=== PATIENT | male | born 1950 | race Caucasian/White ===

== ENCOUNTER 2020-09-19 12:54 | Inpatient (IN) ==
--- NOTE | 2020-09-19 13:46 | Emergency Department Note ---
SOB HPI General Chief Complaint: Shortness of Breath/Dyspnea Stated Complaint: SOB Time Seen by Provider: 09/19/20 13:20 Source: patient Mode of arrival: ambulatory Limitations: no limitations History of Present Illness HPI Narrative: Narrative: Patient is a 70-year-old gentleman who arrives emergency department by private vehicle complaining of shortness of breath. He is accompanied by his . Patient says he has been feeling short of breath for the past 2 weeks. This is gradual in onset and has been progressively worsening. He is also had severe edema in both lower extremities. He has had a cough productive of white sputum. He denies any associated fever chills or chest pain. He presented to an urgent care who was concerned about his symptoms they referred him to the emergency department for further evaluation. He has never had anything like this before. Related Data Home Medications Medication Instructions Recorded Confirmed triamterene-hydrochlorothiazid 1 tab PO QDAY 09/19/20 09/19/20 Allergies Allergy/AdvReac Type Severity Reaction Status Date / Time No Known Drug Allergies Allergy Unverified 09/19/20 12:59 Review of Systems ROS ROS Narrative: Narrative: All systems ED: reviewed and negative except as stated. Constitutional: Denies fever and chills Cardiovascular: Denies chest pain Gastrointestinal: Denies abdominal pain, nausea and diarrhea PFSH Narrative Patient History Narrative: Narrative: Medical/Surgical/Family History All Active Problems (Updated 09/19/20 @ 15:47 by Pantera Monroe DO) Congestive heart failure (Acute) History of hypertension (Acute) History of COPD (Acute) Social History Smoking Status: Current every day smoker Alcohol Intake Frequency: holiday/special occasion only Substance Use: does not use Exam Narrative Narrative: Gen -patient is awake and alert and in no acute distress. HEENT -head is atraumatic. There is no conjunctival pallor or scleral icterus. CV -S1-S2 regular rate and rhythm. Peripheral pulses are palpable. There is severe pitting edema bilateral lower extremities Resp -breathing slightly labored while on a nasal cannula. The patient is able to speak in short sentences but has significantly increased work of breathing after prolonged conversation. Lungs have moderate rales bilaterally. There is no cyanosis. GI - Abdomen is soft and nontender to palpation. There is no guarding or rebound tenderness. Derm -skin is warm and dry. MSK -present extremities are atraumatic. Psych -patient has appropriate affect. Neuro -patient answers questions appropriately with fluent speech. Patient moves all present extremities equally. General Limitations: no limitations Course Vital Signs Vital signs: Vital Signs Temperature 97.4 F 09/19/20 12:55 Pulse Rate 101 H 09/19/20 12:55 Respiratory Rate 20 09/19/20 12:55 Blood Pressure 141/75 09/19/20 12:55 Pulse Oximetry (%) 83 L 09/19/20 12:55 Temperature 97.4 F 09/19/20 12:55 Pulse Rate 77 09/19/20 15:31 Respiratory Rate 24 H 09/19/20 15:31 Blood Pressure 111/87 09/19/20 15:31 Pulse Oximetry (%) 95 09/19/20 15:31 MDM MDM Narrative Medical decision making narrative: I personally performed interpreted a limited bedside transthoracic echocardiogram and pulmonary ultrasound. Obtained apical four-chamber parasternal long and short axis views which were somewhat limited by patient body habitus and positioning. There is no pericardial effusion. There is slightly decreased left ventricular ejection fraction. There is no evidence of right ventricular dysfunction. Lung ibarra are B-lines predominant bilaterally Patient presents with new onset shortness of breath. His chest x-ray and pulmonary ultrasound are suggestive of decompensated heart failure. Labs remarkable for an elevated BNP and minimally elevated troponin. Patient's work of breathing greatly improved with supplemental oxygen. I discussed the test results with him and his and is agreeable with the plan for admission and diuresis. I discussed the patient's history examination and diagnostic findings with Dr. Gaspar, who agrees with the plan of care and accepts admission. Critical care time I provided at least 35 minutes of critical care time. This was separate from any separately billable procedures. The patient was given IV diuretics and transdermal nitrates to treat his decompensated heart failure and given suppleme ntal oxygen to treat the resulting hypoxemic respiratory failure.. The patient was closely monitored for response to treatment and stability of vital signs throughout their emergency department stay. Lab Data Lab results reviewed: Yes I reviewed the patient's lab results. Result diagrams: 09/19/20 13:20 09/19/20 13:20 Labs: Lab Results 09/19/20 09/19/20 09/19/20 Range/Units 13:20 13:20 13:20 WBC 10.8 (4.5-11.0) K/mcL RBC 6.12 H (4.50-5.90) M/mcL Hgb 17.5 H (13.5-16.5) g/dL Hct 56.9 H (41.0-55.0) % MCV 93.0 (80.0-100.0) fL MCH 28.6 (26.0-34.0) pg MCHC 30.8 L (31.0-36.0) g/dL RDW 14.7 H (11.5-14.5) % Plt Count 200 (140-440) K/mcL MPV 11.0 H (7.4-10.4) fL Neut % (Auto) 62.8 (38.0-78.0) % Lymph % (Auto) 18.9 (15.0-49.0) % [place] % (Auto) 17.7 H (1.0-12.0) % Eos % (Auto) 0.3 (0.0-7.0) % Baso % (Auto) 0.3 (0.0-2.0) % Lymph # (Auto) 2.03 (1.50-4.80) K/mcL [place] # (Auto) 1.90 H (0.10-0.90) K/mcL Eos # (Auto) 0.03 (0.00-0.70) K/mcL Baso # (Auto) 0.03 (0.00-0.20) K/mcL Absolute Neutrophils 6.76 (1.80-8.00) K/mcL Sodium 137 (133-145) mmol/L Potassium 4.3 (3.3-5.1) mmol/L Chloride 100 (96-108) mmol/L Carbon Dioxide 27 (22-30) mmol/L Anion Gap 10.0 (8.0-16.0) BUN 19 (8-23) mg/dL Creatinine 1.2 (0.7-1.2) mg/dL GFR Calculation 61 Glucose 90 (70-105) mg/dL Calcium 8.9 (8.6-10.4) mg/dL Total Bilirubin 1.1 H (0.1-1.0) mg/dL AST 25 (<40) U/L ALT 20 (<40) U/L Alkaline Phosphatase 80 (39-117) U/L Troponin T 0.03 H (<0.03) ng/mL NT-Pro-B Natriuret Pep 3475.0 H (<125.0) pg/mL Total Protein 6.7 (5.9-8.4) gm/dL Albumin 3.5 (3.2-5.2) gm/dL Globulin 3.2 (2.2-3.7) gm/dL Albumin/Globulin Ratio 1.1 (1.0-2.3) ED POC Tests ED POC Tests: FELICITAS - SARS Antigen Negative EKG Data EKG #1: EKG attestation: Yes I reviewed and interpreted this EKG. EKG results narrative: EKG performed at 1:32 PM: Sinus rhythm, rate 101. Normal P wave morphology atypical right bundle branch block. T waves are inverted throughout the precordial leads. No ST segment deviation. Normal QTC duration. No old EKG immediately available for comparison. EKG was interpreted by me. Discharge Plan Patient/Caregiver Discharge Instructions Pt seen by [facility] PRESERVES/PA only: No Clinical Impression: Congestive heart failure Qualifiers: Heart failure type: unspecified Heart failure chronicity: acute Qualified Code(s): I50.9 - Heart failure, unspecified Patient Disposition: Xfer As Inpt ([facility]) Condition: Fair Follow up with: No,PCP [Primary Care Provider] - Prescriptions: No Action triamterene-hydrochlorothiazid 37.5-25 mg Tablet 1 tab PO QDAY RF: 0
--- NOTE | 2020-09-19 14:03 | EKG ---
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 Measurements Intervals [place] Rate: 101 P: 81 [place]: 131 QRS: 114 QRSD: 157 T: -60 QT: 368 QTc: 477 Interpretive Statements Sinus tachycardia Multiple premature complexes, supraven Left atrial enlargement RBBB and LPFB Anteroseptal infarct, age indeterminate NO PRIOR TRACING FOR COMPARISON Electronically Signed On 09-19-2020 14:03:18 PDT by Nba Grajeda M.D. /[facility] [place]/M0/[id number].pdf
--- NOTE | 2020-09-19 14:13 | XRay Report ---
INDICATION: dyspnea TECHNIQUE: PA and lateral upright chest x-ray COMPARISON: None FINDINGS: Lungs: No pulmonary parenchymal consolidation. No pulmonary parenchymal mass Heart, vascular: There is mild cardiomegaly. Pulmonary vascularity is prominent consistent with pulmonary congestion. There is peribronchial thickening consistent with interstitial edema. Mediastinum, cesar: No mediastinal widening. No hilar mass Pleura:Small right pleural effusion, probably secondary to congestive heart failure Thoracic spine, ribs: No thoracic compression fracture. Ribs are negative. No fracture. No lytic lesion IMPRESSION: 1. Cardiomegaly and findings consistent with moderate congestive heart failure 2. Small right effusion Interpreted and Authenticated by: [place] Clayton 09/19/20
[2020-09-19 14:32] LABS: ALT/SGPT 20 U/L (<40); AST/SGOT 25 U/L (<40); Albumin 3.5 gm/dL (3.2-5.2); Albumin/Globulin Ratio 1.1 (1.0-2.3); Alkaline Phosphatase 80 U/L (39-117); Bilirubin,Total 1.1 mg/dL (0.1-1.0); Blood Urea Nitrogen 19 mg/dL (8-23); Calcium 8.9 mg/dL (8.6-10.4); Carbon Dioxide 27 mmol/L (22-30); Chloride 100 mmol/L (96-108); Globulin 3.2 gm/dL (2.2-3.7); Glomerular Filtration Rate 61; Glucose 90 mg/dL (70-105)
[2020-09-19 15:34] LABS: Basophils # (Auto) 0.03 K/mcL (0.00-0.20); Basophils % (Auto) 0.3 % (0.0-2.0); Eosinophils # (Auto) 0.03 K/mcL (0.00-0.70); Eosinophils % (Auto) 0.3 % (0.0-7.0); Hematocrit 56.9 % (41.0-55.0); Hemoglobin 17.5 g/dL (13.5-16.5); Lymphocytes # (Auto) 2.03 K/mcL (1.50-4.80); Lymphocytes % (Auto) 18.9 % (15.0-49.0); Mean Corpuscular HGB Conc 30.8 g/dL (31.0-36.0); Monocytes % (Auto) 17.7 % (1.0-12.0); Neutrophils % (Auto) 62.8 % (38.0-78.0); Platelet Count 200 K/mcL (140-440); RBC 6.12 M/mcL (4.50-5.90); Red Cell Distribution Width 14.7 % (11.5-14.5); WBC 10.8 K/mcL (4.5-11.0)
[2020-09-19] MEDS ORDERED: NITROGLYCERIN 1 GM OINT.TOP TD ONE (15:43)
[2020-09-19] MEDS ORDERED: FUROSEMIDE 40 MG/4 ML VIAL IV ONE (15:43)
--- NOTE | 2020-09-19 16:20 | Internal Med History&Physical ---
HPI History of Present Illness Patient information: Note initiated : 09/19/20 at 4:13 pm Service Date, if different from initiated Date: [] Patient: Grayson Jones 70 y/o M admitted on for Shortness of breath. Chief Complaint: [shortness of breath] History of present illness: Mr. Jones is a 70 year old M history of COPD, presenting with 3 weeks history of bilateral leg swelling as well as shortness of breath. Patient denies any prior similar episode. Patient was in his usual state of health until about 3 weeks ago when he had gradual onset, gradually worsening bilateral leg edema worse as well as progressively worsening shortness of breath. He also is complaining of 11 pounds unintentional weight gain over the same period of time. He is also complaining of orthopnea to the point that he has to sit up in a chair to sleep at night. He is also complaining of dyspnea on exertions of about 10 feet. He is also complained of general body weakness. Patient is denies any change in his appetite. Patient denies any chest pain or chest tightness or palpitations. Patient denies any cough. Patient is committing of wheezing but it is to the baseline given the history of COPD. Because of his symptoms, patient's presented to urgent care center where he was told to come to our ED for further evaluation and treatment. Vital signs significant for oxygen saturations in the mid 80s on room air with the rest of the vital signs within normal limits. Labs significant for BNP 3475. Serum troponin-i 0.03. Chest x-ray showing cardiomegaly and pulmonary edema. EKG does not have any definite signs of acute ischemia. Constitutional Constitutional: Present weakness; Absent chills, excessive sweating, fatigue and fever(s) EENT Eyes: Absent blurry vision, change in vision, loss of vision and other visual disturbances Ears: Absent decreased hearing and tinnitus Nose, mouth and throat: Absent abnormal hearing, dry mouth, headache(s), nasal congestion and sore throat Cardiovascular Cardiovascular: Present as per HPI, edema, leg edema and orthopnea; Absent chest pain, chest pain at rest, irregular heart rhythm and palpatations Respiratory Respiratory: Present dyspnea, dyspnea on exertion and wheezing; Absent cough Gastrointestinal Gastrointestinal: Absent abdominal pain, constipation, diarrhea, nausea and vomiting Musculoskeletal Musculoskeletal: Absent back pain, deformity, limited range of motion, muscle cramps, muscle weakness and numbness Integumentary Integumentary: Absent lesions, rash and wounds Neurological Neurological: Absent focal weakness, headache(s) and numbness Psychiatric Psychiatric: Absent anxiety, depression and hallucinations PFSH PFSH All Active Problems (Updated 09/19/20 @ 16:20 by Arvin Gaspar MD) Current tobacco use (Acute) CHF exacerbation (Acute) Congestive heart failure (Acute) History of hypertension (Acute) History of COPD (Acute) Social History (Updated 09/19/20 @ 16:17 by Arvin Gaspar MD) marital status: smoking status: Current every day smoker alcohol intake frequency: does not drink substance use type: does not use MEDS/ALLERGIES Home Medications and Allergies Home Medications Medication Instructions Recorded Confirmed Type triamterene-hydrochlorothiazid 1 tab PO QDAY 09/19/20 09/19/20 History Allergies Allergy/AdvReac Type Severity Reaction Status Date / Time No Known Drug Allergies Allergy Unverified 09/19/20 12:59 EXAM Constitutional Vitals: Temp Pulse Resp BP Pulse Ox 36.3 C 80 20 121/77 95 09/19/20 12:55 09/19/20 15:46 09/19/20 15:46 09/19/20 15:46 09/19/20 15:46 General appearance: cooperative and no acute distress Head Head exam: Present atraumatic and normocephalic Eye Eye exam: Present EOMI and PERRL ENT ENT exam: Present mucous membranes moist, normal exam and normal external ear exam Additional comments: Nasal cannula in place Neck Neck exam: Present normal inspection; Absent lymphadenopathy, tenderness and thyromegaly Respiratory Respiratory exam: Present wheezes; Absent accessory muscle use and respiratory distress Additional comments: Prolonged expiratory phase Expiratory > inspiratory wheezing in all lung ibarra. Cardiovascular Cardiovascular exam: Present normal rate and rhythm; Absent JVD GI/Abdominal GI/Abdominal exam: Present normal bowel sounds and soft; Absent organomegaly and tenderness Rectal Rectal exam: Present deferred Extremities Exam Extremities exam: Present full ROM, normal capillary refill and normal inspection; Absent tenderness Neurological Exam Neurological exam: Present alert, CN II-XII intact and oriented X3; Absent motor sensory deficit Psychiatric Psychiatric exam: Present normal affect and normal mood; Absent anxious and depressed Skin Skin exam: Present dry and intact DATA Data Completed and Pending Labs: Labs from last 24 hours 09/19/20 09/19/20 09/19/20 13:20 13:20 13:20 WBC 10.8 RBC 6.12 H Hgb 17.5 H Hct 56.9 H MCV 93.0 MCH 28.6 MCHC 30.8 L RDW 14.7 H Plt Count 200 MPV 11.0 H Neut % (Auto) 62.8 Lymph % (Auto) 18.9 [place] % (Auto) 17.7 H Eos % (Auto) 0.3 Baso % (Auto) 0.3 Lymph # (Auto) 2.03 [place] # (Auto) 1.90 H Eos # (Auto) 0.03 Baso # (Auto) 0.03 Absolute Neutrophils 6.76 Sodium 137 Potassium 4.3 Chloride 100 Carbon Dioxide 27 Anion Gap 10.0 BUN 19 Creatinine 1.2 GFR Calculation 61 Glucose 90 Calcium 8.9 Total Bilirubin 1.1 H AST 25 ALT 20 Alkaline Phosphatase 80 Troponin T 0.03 H NT-Pro-B Natriuret Pep 3475.0 H Total Protein 6.7 Albumin 3.5 Globulin 3.2 Albumin/Globulin Ratio 1.1 Additional Comments Additional comments: ECG interpretations: Ventricular rate: 101 MT interval: 131 QRS interval: 157 QTc: 477 Right axis deviation RBBB and LPFB No ST segments elevation or depression No T waves inversion A/P Assessment and plan (1) History of COPD: Status: Acute (2) History of hypertension: Status: Acute (3) CHF exacerbation: Status: Acute (4) Current tobacco use: Status: Acute Narrative A/P Narrative: 1. CHF exacerbation: Admit to inpatient PCU with telemetry Strict intake and output daily weigh 2L/day fluid restriction 2D echocardiogram Lasix 40mg IV BID Lisinopril 20mg PO daily No beta elizabet during exacerbation phase Spironolactone depending on LVEF from echocardiogram Supplemental oxygen via nasal cannula to achieve spo2 >=90% 2. h/o COPD, does not appear to be in exacerbation: Continue bronchodilators and inhaled steriod Supplemental oxygen via nasal cannula to achieve spo2 >=90% 3. h/o essential HTN: Currently normotensive Lasix 40mg IV BID Lisinopril 20mg PO daily 4. Current tobacco use: Advise patient on quitting cigarette smoking and provide nicotine replacement therapy as needed for smoking craving GI ppx: not currently indicated DVT ppx: Lovenox Code status: Full Prognosis: guarded Disposition: inpatient PCU Time Spent With Patient Time: Total time spent is greater than 50% in coordination of care (as documented) at patient's floor/unit and/or counseling patient: Total time spent with greater than 50% in coordination of care (as documented) at patient's floor/unit and/or counseling patient:: 25 - 35 minutes
[2020-09-19] MEDS ORDERED: LACTULOSE 20 GM/30 ML ORAL.SOL PO PRN (16:26)
[2020-09-19] MEDS ORDERED: ACETAMINOPHEN 325 MG TABLET PO PRN (16:26)
[2020-09-19] MEDS ORDERED: NITROGLYCERIN 0.4 MG TAB.SUBL SL PRN (16:26)
[2020-09-19] MEDS ORDERED: ONDANSETRON 4 MG/2 ML VIAL IV PRN (16:26)
[2020-09-19] MEDS ORDERED: SENNOSIDES 1 TABLET PO PRN (16:26)
[2020-09-19] MEDS: BUDESONIDE 0.5 MG/2 ML AMPUL.NEB NEB SCH (20:04)
[2020-09-19] MEDS: IPRATROPIUM/ALBUTEROL 3 ML AMPUL.NEB NEB PRN (20:05)
[2020-09-19] MEDS: DOCUSATE SODIUM 100 MG CAPSULE PO SCH (21:02)
[2020-09-19] MEDS: 0.9 % SODIUM CHLORIDE 10 ML SYRINGE IV SCH (21:31)
[2020-09-20 06:40] LABS: Basophils # (Auto) 0.02 K/mcL (0.00-0.20); Basophils % (Auto) 0.2 % (0.0-2.0); Eosinophils # (Auto) 0.08 K/mcL (0.00-0.70); Eosinophils % (Auto) 0.9 % (0.0-7.0); Hematocrit 57.6 % (41.0-55.0); Hemoglobin 17.2 g/dL (13.5-16.5); Lymphocytes # (Auto) 1.77 K/mcL (1.50-4.80); Lymphocytes % (Auto) 19.5 % (15.0-49.0); Mean Cell Volume 94.1 fL (80.0-100.0); Mean Corpuscular HGB Conc 29.9 g/dL (31.0-36.0); Mean Platelet Volume 11.1 fL (7.4-10.4); Monocytes # (Auto) 1.91 K/mcL (0.10-0.90); Neutrophils % (Auto) 58.4 % (38.0-78.0); Platelet Count 187 K/mcL (140-440); RBC 6.12 M/mcL (4.50-5.90); Red Cell Distribution Width 15.2 % (11.5-14.5); WBC 9.1 K/mcL (4.5-11.0)
[2020-09-20] MEDS: FUROSEMIDE 40 MG/4 ML VIAL IV SCH ×2 (08:01→15:19)
[2020-09-20] MEDS: 0.9 % SODIUM CHLORIDE 10 ML SYRINGE IV SCH ×3 (08:07→21:57)
[2020-09-20] MEDS: DOCUSATE SODIUM 100 MG CAPSULE PO SCH ×2 (08:08→19:54)
[2020-09-20] MEDS ORDERED: LISINOPRIL 20 MG TABLET PO SCH (09:00)
[2020-09-20] MEDS ORDERED: ENOXAPARIN 30 MG/0.3 ML SYRINGE SQ SCH (09:00)
[2020-09-20] MEDS: BUDESONIDE 0.5 MG/2 ML AMPUL.NEB NEB SCH ×2 (09:18→19:55)
[2020-09-20 09:23] LABS: Blood Urea Nitrogen 17 mg/dL (8-23); Calcium 9.2 mg/dL (8.6-10.4); Carbon Dioxide 28 mmol/L (22-30); Chloride 99 mmol/L (96-108); Glomerular Filtration Rate 68; Glucose 89 mg/dL (70-105)
[2020-09-20] MEDS ORDERED: MAGNESIUM SULFATE 2 GM/50 ML BAG IV PRN ×2 (13:50→23:14)
[2020-09-20] MEDS ORDERED: POTASSIUM CHLORIDE 20 MEQ/15 ML ML PO PRN ×2 (13:50→23:14)
[2020-09-20] MEDS ORDERED: NEUTRA PHOS 1 PACKET PO PRN ×2 (13:50→23:14)
[2020-09-20] MEDS ORDERED: ACETAMINOPHEN 650 MG/65 ML BAG IV PRN ×2 (13:50→23:14)
--- NOTE | 2020-09-20 14:10 | Internal Med Progress Note ---
SUBJECTIVE Subjective Patient information: Note initiated : 09/20/20 at 2:08 pm Service Date, if different from initiated Date: [] Patient: Grayson Jones 70 y/o M admitted on 09/19/20 for Shortness of breath. Chief Complaint: [SOB] History of present illness: Mr. Jones is a 70 year old M history of COPD, presenting with 3 weeks history of bilateral leg swelling as well as shortness of breath. Patient denies any prior similar episode. Patient was in his usual state of health until about 3 weeks ago when he had gradual onset, gradually worsening bilateral leg edema worse as well as progressively worsening shortness of breath. He also is complaining of 11 pounds unintentional weight gain over the same period of time. He is also complaining of orthopnea to the point that he has to sit up in a chair to sleep at night. He is also complaining of dyspnea on exertions of about 10 feet. He is also complained of general body weakness. Patient is denies any change in his appetite. Patient denies any chest pain or chest tightness or palpitations. Patient denies any cough. Patient is committing of wheezing but it is to the baseline given the history of COPD. Because of his symptoms, patient's presented to urgent care center where he was told to come to our ED for further evaluation and treatment. Vital signs significant for oxygen saturations in the mid 80s on room air with the rest of the vital signs within normal limits. Labs significant for BNP 3475. Serum troponin-i 0.03. Chest x-ray showing cardiomegaly and pulmonary edema. EKG does not have any definite signs of acute ischemia. 6/4: On 3L supplemental oxygen this afternoon. Improving shortness of breath. Denies wheezing. Denies cough. Denies chest pain. Denies fever or chills. Constitutional Vitals: Vital Signs Temp Pulse Resp BP Pulse Ox 36.3 C 76 20 115/44 94 09/20/20 12:00 09/20/20 09:20 09/20/20 10:00 09/20/20 13:02 09/20/20 13:02 Period Temp Pulse Resp BP Sys/Garcia Pulse Ox Last 24 Hr 36.3 C-37.0 C 39-94 16-27 84-144/44-92 90-98 Intake and Output 09/20/20 09/20/20 09/20/20 05:59 13:59 21:59 Output Total 950 1625 Balance -950 162 Intake & Output: Intake & Output 09/20/20 09/20/20 09/20/20 05:59 13:59 21:59 Output Total 950 1625 Balance -373 -1625 Output: Void Amount 950 1625 Other: Urine Appearance Clear Clear Urine Color Pale Bright Yellow Urine Odor Normal General appearance: cooperative and no acute distress Head Head exam: Present atraumatic and normocephalic Eye Eye exam: Present EOMI and PERRL ENT ENT exam: Present mucous membranes moist, normal exam and normal external ear exam Additional comments: Nasal cannula in place. Neck Neck exam: Present normal inspection; Absent lymphadenopathy, tenderness and thyromegaly Respiratory Respiratory exam: Present wheezes; Absent accessory muscle use and respiratory distress Cardiovascular Cardiovascular exam: Present normal rate and rhythm; Absent JVD Additional comments: Bilateral lower extremities edema up to knees. GI/Abdominal GI/Abdominal exam: Present normal bowel sounds and soft; Absent organomegaly and tenderness Rectal Rectal exam: Present deferred Extremities Exam Extremities exam: Present full ROM, normal capillary refill, normal inspection and pedal edema; Absent tenderness Additional comments: Bilateral lower extremities edema up to knees. Neurological Exam Neurological exam: Present alert, CN II-XII intact and oriented X3; Absent motor sensory deficit Psychiatric Psychiatric exam: Present normal affect and normal mood; Absent anxious and depressed Skin Skin exam: Present dry and intact OBJ DATA Labs CBC & Chem 7: 09/20/20 05:18 09/20/20 08:19 Labs: Abnormal Lab Results 09/20/20 09/19/20 09/19/20 05:18 13:20 13:20 RBC 6.12 H Hgb 17.2 H Hct 57.6 H MCHC 29.9 L RDW 15.2 H MPV 11.1 H [place] % (Auto) 21.0 H [place] # (Auto) 1.91 H Total Bilirubin 1.1 H Troponin T 0.03 H NT-Pro-B Natriuret Pep 3475.0 H 09/19/20 13:20 RBC 6.12 H Hgb 17.5 H Hct 56.9 H MCHC 30.8 L RDW 14.7 H MPV 11.0 H [place] % (Auto) 17.7 H [place] # (Auto) 1.90 H Total Bilirubin Troponin T NT-Pro-B Natriuret Pep Meds: Medications Acetaminophen (Acetaminophen 325 Mg Tablet) 650 mg PO Q6HP PRN; Protocol PRN Reason: Per Pain Protocol/Fever > 101 Albuterol/Ipratropium (Ipratropium/Albuterol 3 Ml Ampul.Neb) 3 ml NEB Q4HRT PRN PRN Reason: Wheezing Last Admin: 09/19/20 20:05 Dose: 3 ml Documented by: Budesonide (Budesonide 0.5 Mg/2 Ml Ampul.Neb) 0.5 mg NEB Q12 [facility] Last Admin: 09/20/20 09:18 Dose: 0.5 mg Documented by: Docusate Sodium (Docusate Sodium 100 Mg Capsule) 100 mg PO BID [facility] Last Admin: 09/20/20 08:08 Dose: Not Given Documented by: Enoxaparin Sodium (Enoxaparin 30 Mg/0.3 Ml Syringe) 30 mg SQ DAILY [facility] Last Admin: 09/20/20 08:01 Dose: 30 mg Documented by: Furosemide (Furosemide 40 Mg/4 Ml Vial) 40 mg IV BIDD [facility] Last Admin: 09/20/20 08:01 Dose: 40 mg Documented by: Magnesium Sulfate (Magnesium Sulfate) 2 gm in 50 mls @ 50 mls/hr IV UD PRN PRN Reason: Mag < or = 1.7 Acetaminophen (Ofirmev) 650 mg in 65 mls @ 130 mls/hr IV Q6HP PRN; Protocol PRN Reason: Per Pain Protocol/Fever > 101 Lactulose (Lactulose 20 Gm/30 Ml Oral.Mable) 10 gm PO DAILYP PRN PRN Reason: Constipation Lisinopril (Lisinopril 20 Mg Tablet) 20 mg PO DAILY [facility] Last Admin: 09/20/20 11:41 Dose: Not Given Documented by: Nitroglycerin (Nitroglycerin 0.4 Mg Tab.Subl) 0.4 mg SL Q5M PRN PRN Reason: Chest Pain Ondansetron HCl (Ondansetron 4 Mg/2 Ml Vial) 4 mg IV Q4HP PRN; Protocol PRN Reason: Nausea And Vomiting Potassium Chloride (Potassium Chloride 20 Meq/15 Ml Ml) 20 meq PO BIDCC PRN PRN Reason: K <3.6 Potassium/Phosphorus/Sodium (Neutra Phos 1 Packet) 2 packet PO DAILYP PRN PRN Reason: PHOS <2.5 Senna (Sennosides 1 Tablet) 2 tab PO HSP PRN PRN Reason: Constipation Sodium Chloride (0.9 % Sodium Chloride 10 Ml Syringe) 10 ml IV Q8 FELIZ Last Admin: 09/20/20 08:07 Dose: 10 ml Documented by: A/P Assessment and plan (1) History of COPD: Status: Acute (2) History of hypertension: Status: Acute (3) CHF exacerbation: Status: Acute (4) Current tobacco use: Status: Acute Narrative A/P Narrative: 1. CHF exacerbation: Stays in inpatient PCU with telemetry Strict intake and output daily weigh 2L/day fluid restriction 2D echocardiogram Lasix 40mg IV BID Lisinopril 20mg PO daily No beta elizabet during exacerbation phase Spironolactone depending on LVEF from echocardiogram Supplemental oxygen via nasal cannula to achieve spo2 >=90% 2. h/o COPD, does not appear to be in exacerbation: Continue bronchodilators and inhaled steriod Supplemental oxygen via nasal cannula to achieve spo2 >=90% 3. h/o essential HTN: Currently normotensive Lasix 40mg IV BID Lisinopril 20mg PO daily 4. Current tobacco use: Advise patient on quitting cigarette smoking and provide nicotine replacement therapy as needed for smoking craving GI ppx: not currently indicated DVT ppx: Lovenox Code status: Full Prognosis: stable Disposition: inpatient PCU Time Spent With Patient Time: Total time spent is greater than 50% in coordination of care (as documented) at patient's floor/unit and/or counseling patient:
[2020-09-20] MEDS: IPRATROPIUM/ALBUTEROL 3 ML AMPUL.NEB NEB PRN (19:55)
[2020-09-20] MEDS ORDERED: ACETAMINOPHEN 325 MG TABLET PO PRN (23:14)
[2020-09-20] MEDS ORDERED: NITROGLYCERIN 0.4 MG TAB.SUBL SL PRN (23:14)
[2020-09-20] MEDS ORDERED: ONDANSETRON 4 MG/2 ML VIAL IV PRN (23:14)
[2020-09-20] MEDS ORDERED: LACTULOSE 20 GM/30 ML ORAL.SOL PO PRN (23:14)
[2020-09-20] MEDS ORDERED: SENNOSIDES 1 TABLET PO PRN (23:14)
[2020-09-21] MEDS: 0.9 % SODIUM CHLORIDE 10 ML SYRINGE IV SCH ×3 (05:24→22:20)
[2020-09-21 06:58] LABS: Basophils # (Auto) 0.03 K/mcL (0.00-0.20); Basophils % (Auto) 0.3 % (0.0-2.0); Eosinophils # (Auto) 0.05 K/mcL (0.00-0.70); Eosinophils % (Auto) 0.5 % (0.0-7.0); Hemoglobin 17.2 g/dL (13.5-16.5); Lymphocytes # (Auto) 1.39 K/mcL (1.50-4.80); Lymphocytes % (Auto) 14.3 % (15.0-49.0); Mean Cell Volume 92.7 fL (80.0-100.0); Mean Corpuscular HGB Conc 30.7 g/dL (31.0-36.0); Mean Platelet Volume 11.1 fL (7.4-10.4); Monocytes # (Auto) 1.82 K/mcL (0.10-0.90); Monocytes % (Auto) 18.7 % (1.0-12.0); Neutrophils % (Auto) 66.2 % (38.0-78.0); Platelet Count 176 K/mcL (140-440); RBC 6.04 M/mcL (4.50-5.90); Red Cell Distribution Width 14.6 % (11.5-14.5); WBC 9.7 K/mcL (4.5-11.0)
[2020-09-21 07:02] LABS: ALT/SGPT 17 U/L (<40); AST/SGOT 23 U/L (<40); Albumin 3.2 gm/dL (3.2-5.2); Albumin/Globulin Ratio 0.9 (1.0-2.3); Alkaline Phosphatase 81 U/L (39-117); Bilirubin,Direct 0.5 mg/dL (<0.3); Bilirubin,Total 1.5 mg/dL (0.1-1.0); Blood Urea Nitrogen 17 mg/dL (8-23); Calcium 9.2 mg/dL (8.6-10.4); Carbon Dioxide 36 mmol/L (22-30); Chloride 95 mmol/L (96-108); Globulin 3.4 gm/dL (2.2-3.7); Glomerular Filtration Rate 68; Glucose 76 mg/dL (70-105); Lactate Dehydrogenase 215 U/L (135-225); Phosphorous 3.5 mg/dL (2.5-4.5); Triglycerides 65 mg/dL (<150); Uric Acid 11.3 mg/dL (2.5-8.0)
[2020-09-21] MEDS ORDERED: FUROSEMIDE 40 MG/4 ML VIAL IV SCH (08:00)
[2020-09-21] MEDS: DOCUSATE SODIUM 100 MG CAPSULE PO SCH ×2 (08:08→22:19)
[2020-09-21] MEDS: ENOXAPARIN 30 MG/0.3 ML SYRINGE SQ SCH (08:09)
[2020-09-21] MEDS ORDERED: LISINOPRIL 20 MG TABLET PO SCH (09:00)
[2020-09-21] MEDS: BUDESONIDE 0.5 MG/2 ML AMPUL.NEB NEB SCH ×2 (09:26→21:00)
[2020-09-21] MEDS: IPRATROPIUM/ALBUTEROL 3 ML AMPUL.NEB NEB PRN ×2 (09:26→21:00)
--- NOTE | 2020-09-21 12:09 | Internal Med Progress Note ---
SUBJECTIVE Subjective Patient information: Note initiated : 09/21/20 at 12:04 pm Service Date, if different from initiated Date: [] Patient: Grayson Jones 70 y/o M admitted on 09/19/20 for Shortness of breath. Chief Complaint: [] Interval history: History of present illness: Mr. Jones is a 70 year old M history of COPD, presenting with 3 weeks history of bilateral leg swelling as well as shortness of breath. Patient denies any prior similar episode. Patient was in his usual state of health until about 3 weeks ago when he had gradual onset, gradually worsening bilateral leg edema worse as well as progressively worsening shortness of breath. He also is complaining of 11 pounds unintentional weight gain over the same period of time. He is also complaining of orthopnea to the point that he has to sit up in a chair to sleep at night. He is also complaining of dyspnea on exertions of about 10 feet. He is also complained of general body weakness. Patient is denies any change in his appetite. Patient denies any chest pain or chest tightness or palpitations. Patient denies any cough. Patient is committing of wheezing but it is to the baseline given the history of COPD. Because of his symptoms, patient's presented to urgent care center where he was told to come to our ED for further evaluation and treatment. Vital signs significant for oxygen saturations in the mid 80s on room air with the rest of the vital signs within normal limits. Labs significant for BNP 3475. Serum troponin-i 0.03. Chest x-ray showing cardiomegaly and pulmonary edema. EKG does not have any definite signs of acute ischemia. 09/20: On 3L supplemental oxygen this afternoon. Improving shortness of breath. Denies wheezing. Denies cough. Denies chest pain. Denies fever or chills. 09/21-patient seen in room along with his . Severely dilated RV on echo EF 54%. Currently on 4 L oxygen. Ongoing therapies. Tolerating diet. Diuretic dose reduced. Over 3500 cc net negative fluid balance. Continue beta-elizabet, lower DOLORES inhibitor dose. Will need outpatient cardiology follow-up for evaluation of pulmonary hypertension and early cor pulmonale. Counseled for smoking cessation. Lymphedema much improved. Constitutional Vitals: Vital Signs Temp Pulse Resp BP Pulse Ox 97.9 F 90 18 92/54 93 09/21/20 11:46 09/21/20 11:46 09/21/20 11:46 09/21/20 11:46 09/21/20 11:46 Period Temp Pulse Resp BP Sys/Garcia Pulse Ox Last 24 Hr 97.9 F-98.4 F 67-92 16-20 92-125/44-87 86-97 Intake and Output 09/20/20 09/21/20 09/21/20 21:59 05:59 13:59 Intake Total 100 Output Total 2955 600 Balance -2955 -500 Weight 103.328 kg 102.648 kg alert oriented No labored breathing on 4 L oxygen No anxiety Lymphedema improved Intake & Output: Intake & Output 09/20/20 09/21/20 09/21/20 21:59 05:59 13:59 Intake Total 100 Output Total 2955 600 Balance -2955 -500 Weight 103.328 kg 102.648 kg Intake: Oral 100 Output: Urine Catheter Amount 325 Void Amount 2630 600 Other: Meal Dinner Breakfast Percent of Meal Consumed Refused Refused Urine Appearance Clear Clear Urine Color Pale Bright Yellow Urine Odor Normal Normal OBJ DATA Labs CBC & Chem 7: 09/21/20 05:22 09/21/20 05:22 Labs: Abnormal Lab Results 09/21/20 09/21/20 09/20/20 05:22 05:22 05:18 RBC 6.04 H 6.12 H Hgb 17.2 H 17.2 H Hct 56.0 H 57.6 H MCHC 30.7 L 29.9 L RDW 14.6 H 15.2 H MPV 11.1 H 11.1 H Lymph % (Auto) 14.3 L [place] % (Auto) 18.7 H 21.0 H Lymph # (Auto) 1.39 L [place] # (Auto) 1.82 H 1.91 H Chloride 95 L Carbon Dioxide 36 H Anion Gap 6.0 L Uric Acid 11.3 H Total Bilirubin 1.5 H Direct Bilirubin 0.5 H Troponin T NT-Pro-B Natriuret Pep Albumin/Globulin Ratio 0.9 L 09/19/20 09/19/20 09/19/20 13:20 13:20 13:20 RBC 6.12 H Hgb 17.5 H Hct 56.9 H MCHC 30.8 L RDW 14.7 H MPV 11.0 H Lymph % (Auto) [place] % (Auto) 17.7 H Lymph # (Auto) [place] # (Auto) 1.90 H Chloride Carbon Dioxide Anion Gap Uric Acid Total Bilirubin 1.1 H Direct Bilirubin Troponin T 0.03 H NT-Pro-B Natriuret Pep 3475.0 H Albumin/Globulin Ratio Meds: Medications Acetaminophen (Acetaminophen 325 Mg Tablet) 650 mg PO Q6HP PRN; Protocol PRN Reason: Per Pain Protocol/Fever > 101 Albuterol/Ipratropium (Ipratropium/Albuterol 3 Ml Ampul.Neb) 3 ml NEB Q4HRT PRN PRN Reason: Wheezing Last Admin: 09/21/20 09:26 Dose: 3 ml Documented by: Budesonide (Budesonide 0.5 Mg/2 Ml Ampul.Neb) 0.5 mg NEB Q12 [facility] Last Admin: 09/21/20 09:26 Dose: 0.5 mg Documented by: Docusate Sodium (Docusate Sodium 100 Mg Capsule) 100 mg PO BID [facility] Last Admin: 09/21/20 08:08 Dose: 100 mg Documented by: Enoxaparin Sodium (Enoxaparin 30 Mg/0.3 Ml Syringe) 30 mg SQ DAILY [facility] Last Admin: 09/21/20 08:09 Dose: 30 mg Documented by: Furosemide (Furosemide 40 Mg/4 Ml Vial) 20 mg IV Q8 [facility] Acetaminophen (Ofirmev) 650 mg in 65 mls @ 130 mls/hr IV Q6HP PRN; Protocol PRN Reason: Per Pain Protocol/Fever > 101 Magnesium Sulfate (Magnesium Sulfate) 2 gm in 50 mls @ 50 mls/hr IV UD PRN PRN Reason: Mag < or = 1.7 Lactulose (Lactulose 20 Gm/30 Ml Oral.Mable) 10 gm PO DAILYP PRN PRN Reason: Constipation Lisinopril (Lisinopril 20 Mg Tablet) 20 mg PO DAILY [facility] Last Admin: 09/21/20 08:09 Dose: 20 mg Documented by: Nitroglycerin (Nitroglycerin 0.4 Mg Tab.Subl) 0.4 mg SL Q5M PRN PRN Reason: Chest Pain Ondansetron HCl (Ondansetron 4 Mg/2 Ml Vial) 4 mg IV Q4HP PRN; Protocol PRN Reason: Nausea And Vomiting Potassium Chloride (Potassium Chloride 20 Meq/15 Ml Ml) 20 meq PO BIDCC PRN PRN Reason: K <3.6 Potassium/Phosphorus/Sodium (Neutra Phos 1 Packet) 2 packet PO DAILYP PRN PRN Reason: PHOS <2.5 Senna (Sennosides 1 Tablet) 2 tab PO HSP PRN PRN Reason: Constipation Sodium Chloride (0.9 % Sodium Chloride 10 Ml Syringe) 10 ml IV Q8 [facility] Last Admin: 09/21/20 05:24 Dose: 10 ml Documented by: A/P Narrative A/P Narrative: * Acute decompensated heart failure mixed systolic/diastolic. Start beta- elizabet/continue DOLORES inhibitor, salt restriction/diuresis. * Acute hypoxic respiratory failure-down from 6 L to 4 L oxygen * History of COPD on bronchodilators/supplemental oxygen * Essential hypertension, start beta-elizabet, continue DOLORES inhibitor * History of tobacco dependence 1-1/2 pack/day. Counseled for cessation * Prophylaxis Lovenox Plan * Start beta-elizabet/lower DOLORES inhibitor * Lower diuretic dose * Smoking cessation counseling * Wean oxygen as tolerated * Possible discharge in 24 to 40 hours * PT OT nutrition support Time Spent With Patient Time: Total time spent is greater than 50% in coordination of care (as documented) at patient's floor/unit and/or counseling patient:
[2020-09-21] MEDS: FUROSEMIDE 40 MG/4 ML VIAL IV SCH ×2 (13:48→22:19)
[2020-09-22] MEDS: IPRATROPIUM/ALBUTEROL 3 ML AMPUL.NEB NEB PRN ×3 (02:55→20:55)
[2020-09-22] MEDS: FUROSEMIDE 40 MG/4 ML VIAL IV SCH (06:08)
[2020-09-22] MEDS: 0.9 % SODIUM CHLORIDE 10 ML SYRINGE IV SCH ×3 (06:09→20:52)
[2020-09-22] MEDS: DOCUSATE SODIUM 100 MG CAPSULE PO SCH ×2 (08:18→20:51)
[2020-09-22] MEDS: ENOXAPARIN 30 MG/0.3 ML SYRINGE SQ SCH (08:18)
[2020-09-22] MEDS: FUROSEMIDE 20 MG TABLET PO SCH ×2 (08:19→15:15)
[2020-09-22] MEDS: LISINOPRIL 5 MG TABLET PO SCH (08:19)
[2020-09-22] MEDS: METOPROLOL SUCCINATE 25 MG TAB.XL.24H PO SCH (08:19)
[2020-09-22 08:23] LABS: Basophils # (Auto) 0.02 K/mcL (0.00-0.20); Basophils % (Auto) 0.2 % (0.0-2.0); Eosinophils # (Auto) 0.05 K/mcL (0.00-0.70); Eosinophils % (Auto) 0.5 % (0.0-7.0); Hematocrit 55.4 % (41.0-55.0); Lymphocytes % (Auto) 13.6 % (15.0-49.0); Mean Corpuscular HGB Conc 30.7 g/dL (31.0-36.0); Mean Platelet Volume 11.1 fL (7.4-10.4); Monocytes % (Auto) 19.9 % (1.0-12.0); Neutrophils % (Auto) 65.8 % (38.0-78.0); Platelet Count 170 K/mcL (140-440); RBC 5.96 M/mcL (4.50-5.90); Red Cell Distribution Width 14.7 % (11.5-14.5); WBC 11.1 K/mcL (4.5-11.0)
[2020-09-22 08:24] LABS: ALT/SGPT 16 U/L (<40); AST/SGOT 23 U/L (<40); Albumin 3.3 gm/dL (3.2-5.2); Albumin/Globulin Ratio 0.9 (1.0-2.3); Alkaline Phosphatase 81 U/L (39-117); Bilirubin,Direct 0.6 mg/dL (<0.3); Bilirubin,Total 1.8 mg/dL (0.1-1.0); Blood Urea Nitrogen 17 mg/dL (8-23); Calcium 9.1 mg/dL (8.6-10.4); Carbon Dioxide 34 mmol/L (22-30); Chloride 93 mmol/L (96-108); Globulin 3.6 gm/dL (2.2-3.7); Glomerular Filtration Rate 76; Glucose 82 mg/dL (70-105); Lactate Dehydrogenase 264 U/L (135-225); Triglycerides 64 mg/dL (<150)
[2020-09-22] MEDS: TRIAMTERENE/HYDROCHLOROTHIAZID 1 CAP CAPSULE PO SCH (08:25)
--- NOTE | 2020-09-22 10:37 | XRay Report ---
INDICATION: CHF/ copd TECHNIQUE: PA and lateral upright chest x-ray COMPARISON: Previous chest x-ray dated 09/19/2020 FINDINGS: Lungs: No focal pulmonary parenchymal infiltrate or mass. Heart, vascular: Heart size is within normal limits. No pulmonary edema. No focal pulmonary parenchymal infiltrate Mediastinum, cesar: No mediastinal widening. No hilar mass Pleura:Small right pleural effusion is essentially unchanged Thoracic spine, ribs: No thoracic compression fracture. Ribs are negative. No fracture. No lytic lesion IMPRESSION: 1. No pulmonary edema. No focal parenchymal infiltrate 2. Small right pleural effusion Interpreted and Authenticated by: Montana Clayton 09/22/20
[2020-09-22] MEDS: BUDESONIDE 0.5 MG/2 ML AMPUL.NEB NEB SCH ×2 (11:15→20:55)
--- NOTE | 2020-09-22 11:33 | Internal Med Progress Note ---
SUBJECTIVE Subjective Patient information: Note initiated : 09/22/20 at 11:30 am Service Date, if different from initiated Date: [] Patient: Grayson Jones 70 y/o M admitted on 09/19/20 for Shortness of breath. Chief Complaint: [] Interval history: History of present illness: Mr. Jones is a 70 year old M history of COPD, presenting with 3 weeks history of bilateral leg swelling as well as shortness of breath. Patient denies any prior similar episode. Patient was in his usual state of health until about 3 weeks ago when he had gradual onset, gradually worsening bilateral leg edema worse as well as progressively worsening shortness of breath. He also is complaining of 11 pounds unintentional weight gain over the same period of time. He is also complaining of orthopnea to the point that he has to sit up in a chair to sleep at night. He is also complaining of dyspnea on exertions of about 10 feet. He is also complained of general body weakness. Patient is denies any change in his appetite. Patient denies any chest pain or chest tightness or palpitations. Patient denies any cough. Patient is committing of wheezing but it is to the baseline given the history of COPD. Because of his symptoms, patient's presented to urgent care center where he was told to come to our ED for further evaluation and treatment. Vital signs significant for oxygen saturations in the mid 80s on room air with the rest of the vital signs within normal limits. Labs significant for BNP 3475. Serum troponin-i 0.03. Chest x-ray showing cardiomegaly and pulmonary edema. EKG does not have any definite signs of acute ischemia. 09/20: On 3L supplemental oxygen this afternoon. Improving shortness of breath. Denies wheezing. Denies cough. Denies chest pain. Denies fever or chills. 09/21-patient seen in room along with his . Severely dilated RV on echo EF 54%. Currently on 4 L oxygen. Ongoing therapies. Tolerating diet. Diuretic dose reduced. Over 3500 cc net negative fluid balance. Continue beta-elizabet, lower DOLORES inhibitor dose. Will need outpatient cardiology follow-up for evaluation of pulmonary hypertension and early cor pulmonale. Counseled for smoking cessation. Lymphedema much improved. 09/22-patient doing well. No overnight events. Currently on 2 L oxygen. Interval chest imaging resolution of pulmonary edema, minimal pleural effusion, transition to oral diuretics. Will likely discharge in 24 hours. In the sett ing of underlying COPD Target saturations 88 to 90%. And wean oxygen as tolerated, ambulate, therapies, nutrition support. Constitutional Vitals: Vital Signs Temp Pulse Resp BP Pulse Ox 97.6 F 80 20 105/63 90 09/22/20 07:45 09/22/20 11:17 09/22/20 11:17 09/22/20 07:45 09/22/20 11:16 Period Temp Pulse Resp BP Sys/Garcia Pulse Ox Last 24 Hr 97.6 F-98.2 F 79-115 16-20 92-113/54-67 85-94 Intake and Output 09/21/20 09/22/20 09/22/20 21:59 05:59 13:59 Intake Total 800 400 Output Total 700 250 Balance 800 -300 -250 Weight 100.516 kg Alert oriented Nonlabored breathing No anxiety Nondistended abdomen Minimal rhonchi Intake & Output: Intake & Output 09/21/20 09/22/20 09/22/20 21:59 05:59 13:59 Intake Total 800 400 Output Total 700 250 Balance 800 -300 -250 Weight 100.516 kg Intake: Oral 800 400 Output: Void Amount 700 250 Other: Urine Appearance Clear Urine Color Bright Yellow Dark Yellow Urine Odor Normal # Voids 2 OBJ DATA Labs CBC & Chem 7: 09/22/20 05:30 09/22/20 05:30 Labs: Abnormal Lab Results 09/22/20 09/22/20 09/21/20 05:30 05:30 05:22 WBC 11.1 H RBC 5.96 H 6.04 H Hgb 17.0 H 17.2 H Hct 55.4 H 56.0 H MCHC 30.7 L 30.7 L RDW 14.7 H 14.6 H MPV 11.1 H 11.1 H Lymph % (Auto) 13.6 L 14.3 L [place] % (Auto) 19.9 H 18.7 H Lymph # (Auto) 1.39 L [place] # (Auto) 2.20 H 1.82 H Chloride 93 L Carbon Dioxide 34 H Anion Gap 7.0 L Uric Acid 10.0 H Total Bilirubin 1.8 H Direct Bilirubin 0.6 H Lactate Dehydrogenase 264 H Troponin T NT-Pro-B Natriuret Pep Albumin/Globulin Ratio 0.9 L 09/21/20 09/20/20 09/19/20 05:22 05:18 13:20 WBC RBC 6.12 H Hgb 17.2 H Hct 57.6 H MCHC 29.9 L RDW 15.2 H MPV 11.1 H Lymph % (Auto) [place] % (Auto) 21.0 H Lymph # (Auto) [place] # (Auto) 1.91 H Chloride 95 L Carbon Dioxide 36 H Anion Gap 6.0 L Uric Acid 11.3 H Total Bilirubin 1.5 H Direct Bilirubin 0.5 H Lactate Dehydrogenase Troponin T 0.03 H NT-Pro-B Natriuret Pep Albumin/Globulin Ratio 0.9 L 09/19/20 09/19/20 13:20 13:20 WBC RBC 6.12 H Hgb 17.5 H Hct 56.9 H MCHC 30.8 L RDW 14.7 H MPV 11.0 H Lymph % (Auto) [place] % (Auto) 17.7 H Lymph # (Auto) [place] # (Auto) 1.90 H Chloride Carbon Dioxide Anion Gap Uric Acid Total Bilirubin 1.1 H Direct Bilirubin Lactate Dehydrogenase Troponin T NT-Pro-B Natriuret Pep 3475.0 H Albumin/Globulin Ratio Meds: Medications Acetaminophen (Acetaminophen 325 Mg Tablet) 650 mg PO Q6HP PRN; Protocol PRN Reason: Per Pain Protocol/Fever > 101 Albuterol/Ipratropium (Ipratropium/Albuterol 3 Ml Ampul.Neb) 3 ml NEB Q4HRT PRN PRN Reason: Wheezing Last Admin: 09/22/20 11:15 Dose: 3 ml Documented by: Budesonide (Budesonide 0.5 Mg/2 Ml Ampul.Neb) 0.5 mg NEB Q12 [facility] Last Admin: 09/22/20 11:15 Dose: 0.5 mg Documented by: Docusate Sodium (Docusate Sodium 100 Mg Capsule) 100 mg PO BID [facility] Last Admin: 09/22/20 08:18 Dose: 100 mg Documented by: Enoxaparin Sodium (Enoxaparin 30 Mg/0.3 Ml Syringe) 30 mg SQ DAILY [facility] Last Admin: 09/22/20 08:18 Dose: 30 mg Documented by: Furosemide (Furosemide 20 Mg Tablet) 20 mg PO BIDD [facility] Last Admin: 09/22/20 08:19 Dose: 20 mg Documented by: Acetaminophen (Ofirmev) 650 mg in 65 mls @ 130 mls/hr IV Q6HP PRN; Protocol PRN Reason: Per Pain Protocol/Fever > 101 Magnesium Sulfate (Magnesium Sulfate) 2 gm in 50 mls @ 50 mls/hr IV UD PRN PRN Reason: Mag < or = 1.7 Lactulose (Lactulose 20 Gm/30 Ml Oral.Mable) 10 gm PO DAILYP PRN PRN Reason: Constipation Lisinopril (Lisinopril 5 Mg Tablet) 5 mg PO DAILY [facility] Last Admin: 09/22/20 08:19 Dose: 5 mg Documented by: Metoprolol Succinate (Metoprolol Succinate 25 Mg Tab.Xl.24h) 25 mg PO DAILY [facility] Last Admin: 09/22/20 08:19 Dose: 25 mg Documented by: Nitroglycerin (Nitroglycerin 0.4 Mg Tab.Subl) 0.4 mg SL Q5M PRN PRN Reason: Chest Pain Ondansetron HCl (Ondansetron 4 Mg/2 Ml Vial) 4 mg IV Q4HP PRN; Protocol PRN Reason: Nausea And Vomiting Potassium Chloride (Potassium Chloride 20 Meq/15 Ml Ml) 20 meq PO BIDCC PRN PRN Reason: K <3.6 Potassium/Phosphorus/Sodium (Neutra Phos 1 Packet) 2 packet PO DAILYP PRN PRN Reason: PHOS <2.5 Senna (Sennosides 1 Tablet) 2 tab PO HSP PRN PRN Reason: Constipation Sodium Chloride (0.9 % Sodium Chloride 10 Ml Syringe) 10 ml IV Q8 [facility] Last Admin: 09/22/20 06:09 Dose: Not Given Documented by: Triamterene/Hydrochlorothiazide (Triamterene/Hydrochlorothiazid 1 Cap Capsule) 1 cap PO DAILY [facility] Last Admin: 09/22/20 08:25 Dose: 1 cap Documented by: A/P Narrative A/P Narrative: * Acute decompensated heart failure mixed systolic/diastolic on echo, EF 54%. Continue beta-elizabet/ DOLORES inhibitor, salt restriction/diuresis. Transition to oral diuretics * Acute hypoxic respiratory failure-down from 6 L to 4 L oxygen * History of COPD on bronchodilators/supplemental oxygen * Essential hypertension, continue beta-elizabet, DOLORES inhibitor * History of tobacco dependence 1-1/2 pack/day. Counseled for cessation * Prophylaxis Lovenox Plan * Oral diuretics, beta-elizabet/lower DOLORES inhibitor * Smoking cessation counseling * Wean oxygen as tolerated to maintain sats 88 to 90% * Possible discharge in 24 hours * PT OT nutrition support Time Spent With Patient Time: Total time spent is greater than 50% in coordination of care (as documented) at patient's floor/unit and/or counseling patient:
[2020-09-23] MEDS: 0.9 % SODIUM CHLORIDE 10 ML SYRINGE IV SCH (04:10)
[2020-09-23 06:45] LABS: Basophils # (Auto) 0.01 K/mcL (0.00-0.20); Basophils % (Auto) 0.1 % (0.0-2.0); Eosinophils # (Auto) 0.04 K/mcL (0.00-0.70); Eosinophils % (Auto) 0.3 % (0.0-7.0); Hematocrit 54.7 % (41.0-55.0); Hemoglobin 16.9 g/dL (13.5-16.5); Lymphocytes # (Auto) 1.31 K/mcL (1.50-4.80); Lymphocytes % (Auto) 11.2 % (15.0-49.0); Mean Cell Volume 92.6 fL (80.0-100.0); Mean Corpuscular HGB Conc 30.9 g/dL (31.0-36.0); Mean Platelet Volume 11.1 fL (7.4-10.4); Monocytes # (Auto) 2.29 K/mcL (0.10-0.90); Monocytes % (Auto) 19.5 % (1.0-12.0); Neutrophils % (Auto) 68.9 % (38.0-78.0); Platelet Count 156 K/mcL (140-440); RBC 5.91 M/mcL (4.50-5.90); Red Cell Distribution Width 14.7 % (11.5-14.5); WBC 11.7 K/mcL (4.5-11.0)
[2020-09-23 08:01] LABS: ALT/SGPT 15 U/L (<40); AST/SGOT 22 U/L (<40); Albumin 3.4 gm/dL (3.2-5.2); Albumin/Globulin Ratio 1.1 (1.0-2.3); Alkaline Phosphatase 77 U/L (39-117); Bilirubin,Direct 0.6 mg/dL (<0.3); Bilirubin,Total 1.7 mg/dL (0.1-1.0); Blood Urea Nitrogen 16 mg/dL (8-23); Carbon Dioxide 32 mmol/L (22-30); Chloride 94 mmol/L (96-108); Globulin 3.2 gm/dL (2.2-3.7); Glomerular Filtration Rate 90; Glucose 92 mg/dL (70-105); Lactate Dehydrogenase 243 U/L (135-225); Phosphorous 2.6 mg/dL (2.5-4.5); Triglycerides 60 mg/dL (<150); Uric Acid 8.8 mg/dL (2.5-8.0)
[2020-09-23] MEDS: FUROSEMIDE 20 MG TABLET PO SCH (08:54)
[2020-09-23] MEDS: METOPROLOL SUCCINATE 25 MG TAB.XL.24H PO SCH (08:54)
[2020-09-23] MEDS: LISINOPRIL 5 MG TABLET PO SCH (08:54)
[2020-09-23] MEDS: ENOXAPARIN 30 MG/0.3 ML SYRINGE SQ SCH (08:55)
[2020-09-23] MEDS: TRIAMTERENE/HYDROCHLOROTHIAZID 1 CAP CAPSULE PO SCH (08:55)
[2020-09-23] MEDS: DOCUSATE SODIUM 100 MG CAPSULE PO SCH (08:56)
[2020-09-23] MEDS: BUDESONIDE 0.5 MG/2 ML AMPUL.NEB NEB SCH (09:05)
[2020-09-23] MEDS: IPRATROPIUM/ALBUTEROL 3 ML AMPUL.NEB NEB PRN (09:05)
--- NOTE | 2020-09-23 11:44 | Discharge Summary ---
Discharge Provider Provider Patient information: Note initiated : 09/23/20 at 11:41 am Service Date, if different from initiated Date: [] Patient: Grayson Jones 70 y/o M admitted on 09/19/20 for Shortness of breath. Chief Complaint: [] Discharge diagnosis * Acute decompensated heart failure mixed systolic/diastolic on echo, EF 54%. Continue beta-elizabet/ DOLORES inhibitor, salt restriction/oral diuretics * Acute hypoxic respiratory failure-down to 2 L oxygen. Continue supplemental oxygen to maintain sats around 88%. * History of COPD on bronchodilators/supplemental oxygen * Essential hypertension, continue beta-elizabet, DOLORES inhibitor * History of tobacco dependence 1-1/2 pack/day. Counseled for cessation Brief hospital course History of present illness: Mr. Jones is a 70 year old M history of COPD, presenting with 3 weeks history of bilateral leg swelling as well as shortness of breath. Patient denies any prior similar episode. Patient was in his usual state of health until about 3 weeks ago when he had gradual onset, gradually worsening bilateral leg edema worse as well as progressively worsening shortness of breath. He also is complaining of 11 pounds unintentional weight gain over the same period of time. He is also complaining of orthopnea to the point that he has to sit up in a chair to sleep at night. He is also complaining of dyspnea on exertions of about 10 feet. He is also complained of general body weakness. Patient is denies any change in his appetite. Patient denies any chest pain or chest tightness or palpitations. Patient denies any cough. Patient is committing of wheezing but it is to the baseline given the history of COPD. Because of his symptoms, patient's presented to urgent care center where he was told to come to our ED for further evaluation and treatment. Vital signs significant for oxygen saturations in the mid 80s on room air with the rest of the vital signs within normal limits. Labs significant for BNP 3475. Serum troponin-i 0.03. Chest x-ray showing cardiomegaly and pulmonary edema. EKG does not have any definite signs of acute ischemia. 09/20: On 3L supplemental oxygen this afternoon. Improving shortness of breath. Denies wheezing. Denies cough. Denies chest pain. Denies fever or chills. 09/21-patient seen in room along with his . Severely dilated RV on echo EF 54%. Currently on 4 L oxygen. Ongoing therapies. Tolerating diet. Diuretic dose reduced. Over 3500 cc net negative fluid balance. Continue beta-elizabet, lower DOLORES inhibitor dose. Will need outpatient cardiology follow-up for evaluation of pulmonary hypertension and early cor pulmonale. Counseled for smoking cessation. Lymphedema much improved. 09/22-patient doing well. No overnight events. Currently on 2 L oxygen. Interval chest imaging resolution of pulmonary edema, minimal pleural effusion, transition to oral diuretics. Will likely discharge in 24 hours. In the setting of underlying COPD Target saturations 88 to 90%. And wean oxygen as tolerated, ambulate, therapies, nutrition support. 09/23-patient doing a lot better. Recommend smoking cessation/discharging on home oxygen with advised to continue diuretics/beta-elizabet and DOLORES inhibitor. Recommend follow-up with cardiology at the earliest possible date. Continue low-salt diet. Date of admission: 09/19/20 16:20 Discharge date: 09/23/20 Primary care physician: PCP No Consults: 09/19/20 Consult to Physician [CONS] Stat Comment: Consulting Provider: Arvin Gaspar Reason For Exam: Physician to Consult Discharge Meds Discharge Medications Home Medications triamterene-hydrochlorothiazid 1 tab PO QDAY 09/19/20 [History Confirmed 09/19/20 Last Taken 09/19/20 09:00] umeclidinium-vilanterol [Anoro Ellipta] 1 inh INHALATION DAILY 09/19/20 [History Confirmed 09/19/20 Last Taken 09/19/20 09:00] COURSE Hospital Course Hospital course: . Discharge diagnosis: . Time Spent with Patient Time attestation: Total time spent providing and/or coordinating discharge services: EXAM Constitutional Vitals: Temp Pulse Resp BP Pulse Ox 97.6 F 79 18 110/71 87 L 09/23/20 08:00 09/23/20 09:06 09/23/20 09:06 09/23/20 08:00 09/23/20 09:06 Discharge Data Data Completed and Pending Labs on day of discharge: Labs from last 24 hours 09/23/20 09/23/20 05:30 05:30 WBC 11.7 H RBC 5.91 H Hgb 16.9 H Hct 54.7 MCV 92.6 MCH 28.6 MCHC 30.9 L RDW 14.7 H Plt Count 156 MPV 11.1 H Neut % (Auto) 68.9 Lymph % (Auto) 11.2 L [place] % (Auto) 19.5 H Eos % (Auto) 0.3 Baso % (Auto) 0.1 Lymph # (Auto) 1.31 L [place] # (Auto) 2.29 H Eos # (Auto) 0.04 Baso # (Auto) 0.01 Absolute Neutrophils 8.09 H Sodium 134 Potassium 3.7 Chloride 94 L Carbon Dioxide 32 H Anion Gap 8.0 BUN 16 Creatinine 0.8 GFR Calculation 90 Glucose 92 Uric Acid 8.8 H Calcium 9.0 Phosphorus 2.6 Magnesium 2.1 Total Bilirubin 1.7 H Direct Bilirubin 0.6 H GGT 23 AST 22 ALT 15 Alkaline Phosphatase 77 Lactate Dehydrogenase 243 H Total Protein 6.6 Albumin 3.4 Globulin 3.2 Albumin/Globulin Ratio 1.1 Triglycerides 60 Discharge Plan Patient/Caregiver Discharge Instructions Activity: increase activity as tolerated Diet: Low Sodium (2gm) Instructions: Furosemide (By mouth), Heart Failure (GEN), COPD (Chronic Obstructive Pulmonary Disease) (DC), Low-Sodium Diet (DC) Activity Restrictions/Additional Instructions: Oxygen to maintain sats around 88% Recommend smoking cessation Follow-up PCP/cardiology in 1 week Continue DOLORES inhibitor/beta-elizabet Diuretics as advised Daily weight monitoring, take additional dose of Lasix if weight gain is over 4 pounds above baseline or increasing shortness of breath Prescriptions: No Action triamterene-hydrochlorothiazid 37.5-25 mg Tablet 1 tab PO QDAY RF: 0 Anoro Ellipta 62.5-25 mcg/actuation blister with device 1 inh INHALATION DAILY RF: 0 Follow Up Plan Follow up with: No,PCP [Primary Care Provider] - Patient Disposition: Home, Self-Care Prognosis: Fair Rehab Potential: Fair I certify that the patient requires SNF services: No Overall status at discharge: patient is progressing back to baseline Discharge Orders: Discharge Order (Routine); Ordered 09/23/20 Ordered By: Demario De La Torre
== END 2020-09-23 14:20 | disposition home or self-care (01) | DRG 291 ==
LOC: ED 12:54 → ICU 16:20 → MEDSUR 09-20 23:04
PROVIDERS: ADMIT Internal Medicine; ATTEND Internal Medicine